=== PATIENT | male | born 1950 | race Caucasian/White ===

== ENCOUNTER → 2018-10-14 | Outpatient (CLI) | payer OTHER ==
--- NOTE | 2018-10-14 16:57 | RAD ---
Examination: KUB History: Ureteral calculus. Bilateral pain. Comparison/Correlation: None Findings: Frontal view of the abdomen was obtained. Multiple bilateral calculi are present overlying the renal shadows. Calculi on the right measuring 2 0.7 cm diameter at the inferior pole level noted. Multiple left renal calculi are present with the largest of these at the upper pole measuring up to 1.5 cm diameter no radiopaque calculi along the expected course of the ureters or urinary bladder. Punctate calcification along the right side of the urinary bladder is present of indeterminate significance however. This may represent a phlebolith. Osteitis pubis noted. Impression: Bilateral calculi overlying the renal shadows greater in size on the left. Electronically signed by: Medardo Rothman MD (10/14/2018 4:54 PM) [facility]
== END | disposition home or self-care (01) ==
LOC: RAD 15:35
PROVIDERS: ATTEND Physician Assistant Medical
DX: N20.2 Calculus of kidney with calculus of ureter (principal); M85.38 Osteitis condensans, other site
CPT/HCPCS: 74018